=== PATIENT | male | born 1975 | race African-American/Black ===

== ENCOUNTER 2018-09-15 18:15 | Emergency (ER) | payer OTHER ==
[2018-09-15 18:32] VITALS: BP 125/58; PULSE 71; BMI 22.1
[2018-09-15] MEDS ORDERED: SODIUM CHLORIDE 0.9% 500 ML INFUS.BAG IV ONE ×2 (18:45→20:50)
--- NOTE | 2018-09-15 18:45 | PDOC ---
History of Present Illness - General Chief Complaint: Pain Stated Complaint: VOMITING, DIFFICULTY BREATHING, FEVER Time Seen by Provider: 09/15/18 18:33 History Source: Patient - History of Present Illness Initial Comments: 09/15/18 18:51 The patient is a 42 year old male with no reported PMH who presents with vomiting. Patient states he woke up this morning around 4 a.m. and had one episode of NBNB emesis. Patient has since vomited 5 additional times. Notes his last PO intake was yesterday evening (rotisserie chicken and one alcoholic drinks), daily marijuana use. Reports he took his temp and it was 99.6 degrees. Notes he has L "rib pain" when he vomits which he attributes to a poor healing rib many years previous. Last BM was earlier today and was soft and watery. The patient denies chest pain, shortness of breath, numbness/tingling, dysuria/ hematuria, sore throat, cough, recent travel or sick contacts. NKDA Surgical: denies Social: daily marijuana, denies cigarettes, 1-2 alcoholic drinks on weekends PMD: In MD Past History - Past Medical History Allergies/Adverse Reactions: Allergies Allergy/AdvReac Type Severity Reaction Status Date / Time No Known Allergies Allergy Verified 09/15/18 18:32 Home Medications: Ambulatory Orders Ondansetron HCl [Zofran] 4 mg PO TID PRN #12 tablet 09/15/18 COPD: No GI Disorders: Yes (IBS) - Suicide/Smoking/Psychosocial Hx Smoking History: Never smoked Review of Systems - Review of Systems Constitutional: No: Fever HEENTM: No: Blurred Vision, Double Vision Respiratory: No: Cough, Shortness of Breath, Wheezing Cardiac (ROS): No: Chest Pain, Lightheadedness, Palpitations, Syncope ABD/GI: Yes: Blood Streaked Bowels, Vomiting. No: Constipated, Diarrhea : No: Burning, Dysuria *Physical Exam - Vital Signs Last Vital Signs Temp Pulse Resp BP Pulse Ox 98.3 F 71 18 125/58 L 98 09/15/18 18:29 09/15/18 18:29 09/15/18 18:29 09/15/18 18:29 09/15/18 18:29 - Physical Exam General Appearance: Yes: Nourished, Thin HEENT: positive: Normal Voice, Hearing Grossly Normal Neck: positive: Trachea midline, Supple Respiratory/Chest: positive: Lungs Clear, Normal Breath Sounds. negative: Crackles, Wheezing Cardiovascular: positive: S1, S2. negative: Edema, JVD, Murmur Vascular Pulses: Dorsalis-Pedis (R): 2+, Doralis-Pedis (L): 2+ Gastrointestinal/Abdominal: positive: Normal Bowel Sounds, Soft, Other (R lateral flank TTP). negative: Distended, Guarding, Rebound Musculoskeletal: negative: CVA Tenderness (R), CVA Tenderness (L) Extremity: positive: Normal Capillary Refill, Normal Inspection Integumentary: positive: Normal Color, Dry, Warm Neurologic: positive: Fully Oriented, Alert ED Treatment Course - LABORATORY CBC & Chemistry Diagram: 09/15/18 19:03 09/15/18 19:03 Medical Decision Making - Medical Decision Making 09/15/18 19:07 42 year old male with multiple episodes of emesis. Mild L flank TTP on PE. Frontal Dx: colitis, gastroenteritis, hyperemesis cannabis syndrome, pancreatitis. Will obtain basic labs, lipase. IV fluids, Zofran. Reassess. 09/15/18 20:10 No leukocytosis CMP shows slightly elevated bilirubin (1.1) CXR shows no fracture 09/15/18 20:12 Patient reasssed @ bedside. States he is symptomatically improved, however continues to c/o pain. Will give Lidoderm patch and d/c home. *DC/Admit/Observation/Transfer Diagnosis at time of Disposition: Vomiting - Discharge Dispostion Disposition: HOME Condition at time of disposition: Good Decision to Admit order: No - Prescriptions Prescriptions: Ondansetron HCl [Zofran] 4 mg PO TID PRN #12 tablet PRN Reason: Nausea - Referrals - Patient Instructions Printed Discharge Instructions: DI for Vomiting -- Adult Additional Instructions: You were evaluated today for your vomiting Your labs showed no concerning findings and an x-ray of your chest showed no rib fractures At this time you are safe for discharge home. We have sent an anti-nausea medication to your pharmacy in [place]. Please take as needed. Please follow-up with your primary care doctor in [place] in the next 2 days. Presents to an Emergency Department for any new/worsening/concerning symptoms. - Post Discharge Activity
[2018-09-15] MEDS ORDERED: ONDANSETRON 4 MG/2 ML VIAL IVPUSH ONE (18:46)
[2018-09-15] MEDS ORDERED: ONDANSETRON 4 MG/2 ML VIAL ONE (19:08)
[2018-09-15 19:13] LABS: BASO % 0.3 % (0-2.0); EOS % 0.2 % (0-4.5); HEMATOCRIT 44.4 % (35.4-49); HEMOGLOBIN 15.4 GM/dL (11.7-16.9); MCHC 34.7 g/dl (32.0-35.9); MEAN CELL VOLUME 95.2 fl (80-96); MEAN PLT VOLUME 10.3 fl (7.5-11.1); MONO % 3.6 % (3.8-10.2); NEUT % 88.9 % (42.8-82.8); PLATELET COUNT 111 K/MM3 (134-434); RBC 4.67 M/mm3 (4.00-5.60); RDW 12.8 % (11.9-15.9); WHITE BLOOD COUNT 6.4 K/mm3 (4.0-10.0)
--- NOTE | 2018-09-15 19:23 | PDOC ---
Attending Attestation - Resident Resident Name: Marija Roy - ED Attending Attestation I have performed the following: I have examined & evaluated the patient, The case was reviewed & discussed with the resident, I agree w/resident's findings & plan - HPI HPI: 09/15/18 21:02 De Jesus 42 YOM with no significant PMH who presents to the emergency department with multiple episodes of NBNB vomit since 4AM today. Patient reports eating rotisserie chicken and one alcoholic drink yesterday evening. Patient denies any other associated symptoms. Patient denies any sick contact or recent travel. Last bowel movement earlier today, which was normal. No f/c, urinary sx. The patient denies chest pain, shortness of breath, headache and dizziness. Denies fever, chills, nausea, vomit, diarrhea and constipation. Denies dysuria, frequency, urgency and hematuria. Allergies: NKA Past surgical history: None reported. Social history: No reported alcohol or drug use. 1-2 alcoholic drinks on weekends. - Physicial Exam PE: 09/15/18 21:03 NAD, well appearing, PERRL, EOMI, MMM, nl conjunctiva, anicteric; neck supple. palp left lateral chest wall TTP. lungs clear, no respiratory distress. RRR, abdomen soft nontender. CORNELIUS x4, no focal neuro deficits. No peripheral edema. normal color for ethnicity, WWP. - Medical Decision Making 09/15/18 21:05 42 YOM with n/v and left sided cp since the morning. +food and etoh precipitants. Vital signs reviewed, wnl. reassuring Prior notes reviewed, including admissions, discharges and consultations. laboratory results and imaging reviewed, basic labs and lytes wnl, notable for normal LFTs and lipase. CXR clear, no pna. ED course: no acute events, remained stable and well appearing. Clinically improved after interventions, including GI cocktail and analgesia, IVF for hydration. Left sided chest wall tenderness likely from vomiting episodes. No abdominal tenderness and no pulm findings on xr, no s/s infection. Also likely food poisoning vs gastroenteritis vs etoh induced sx/gastritis/vomiting, but feels improved and reassurance provided. [place] , f/u PCP there. Dispo: I discussed the physical exam findings, ancillary test results and final diagnoses with the patient. I answered all of the patient's questions. The patient was satisfied with the care received and felt comfortable with the discharge plan and treatment plan. The patient will return to the Emergency Department with any new, persistent or worsening symptoms. 09/15/18 21:06
[2018-09-15 19:37] LABS: ALBUMIN 4.3 g/dl (3.4-5.0); ALK PHOS 48 U/L (45-117); ANION GAP 10 MMOL/L (8-16); BILIRUBIN,TOTAL 1.1 mg/dL (0.2-1); BLOOD UREA NITROGEN 17 mg/dL (7-18); CALCIUM 8.7 mg/dL (8.5-10.1); CHLORIDE 102 mmol/L (98-107); CO2 27 mmol/L (21-32); GLUCOSE,RANDOM 83 mg/dL (74-106); POTASSIUM 3.6 mmol/L (3.5-5.1); SGOT/AST 24 U/L (15-37); SGPT/ALT 30 U/L (13-61); SODIUM 140 mmol/L (136-145); TOT PROT 7.5 g/dl (6.4-8.2)
[2018-09-15] MEDS ORDERED: ACETAMINOPHEN 1000 MG/100 ML VIAL (NON FORMULARY) IVPB ONE (20:50)
[2018-09-15] MEDS ORDERED: ACETAMINOPHEN INJECTION 100 ML IVPB ONE (20:58)
[2018-09-15] MEDS ORDERED: FAMOTIDINE 20 MG/50 ML IVPB 20 MG/50 ML MG IVPB ONE ×2 (21:08→21:49)
[2018-09-15] MEDS ORDERED: KETOROLAC TROMETHAMINE 15 MG/ML VIAL IVPUSH ONE (21:08)
[2018-09-15] MEDS ORDERED: KETOROLAC TROMETHAMINE 15 MG/ML VIAL ONE (21:48)
[2018-09-15] MEDS ORDERED: LIDOCAINE 5% TOPICAL PATCH TP ONE (21:52)
[2018-09-15] MEDS ORDERED: LIDOCAINE PATCH REMOVAL MC SCH (22:00)
[2018-09-15] MEDS ORDERED: LIDOCAINE 5% TOPICAL PATCH ONE (22:17)
[2018-09-15 23:48] VITALS: TEMP 100.1
[2018-09-16] MEDS ORDERED: LIDOCAINE PATCH REMOVAL MC ONE (10:00)
== END 2018-09-15 23:48 | disposition home or self-care (01) ==
LOC: JER 18:15
PROC: 3E033GC Introduction of Other Therapeutic Substance into Peripheral Vein, Percutaneous Approach (ICD-10-PCS; principal; 2018-09-15)
PROC: 3E033NZ Introduction of Analgesics, Hypnotics, Sedatives into Peripheral Vein, Percutaneous Approach (ICD-10-PCS; 2018-09-15)
PROC: 3E033GC Introduction of Other Therapeutic Substance into Peripheral Vein, Percutaneous Approach (ICD-10-PCS; 2018-09-15)
PROC: 3E0333Z Introduction of Anti-inflammatory into Peripheral Vein, Percutaneous Approach (ICD-10-PCS; 2018-09-15)
DX: R11.10 Vomiting, unspecified (principal); F12.90 Cannabis use, unspecified, uncomplicated
CPT/HCPCS: 36415; 71045-TC-FY; 80053; 83605; 83690; 85025; 99282-25; J0131